=== PATIENT | male | born 1950 | race Hispanic/Latino ===

== ENCOUNTER 2020-06-28 02:04 | Inpatient (IN) | payer OTHER ==
[2020-06-28] VITALS (13 sets, daily range): BP systolic 98–127; BP diastolic 64–84
[2020-06-28] MEDS ORDERED: NITROGLYCERIN 0.4 MG SL TAB SL PRN ×2 (04:00→04:15)
[2020-06-28] MEDS ORDERED: MORPHINE 2 MG SYG IVP PRN (04:00)
[2020-06-28] MEDS ORDERED: ACETAMINOPHEN 325 MG TAB PO PRN ×2 (04:15)
[2020-06-28] MEDS ORDERED: LACTATED RINGERS 1000ML 1,000 ML IV SCH (04:15)
[2020-06-28] MEDS ORDERED: ONDANSETRON 4MG INJ IV PRN (04:15)
[2020-06-28] MEDS ORDERED: DiphenhydrAMINE HCL 50 MG/ML VIAL IV PRN (04:15)
[2020-06-28] MEDS ORDERED: MAG/ALUM/SIMETH 30 ML UDCUP PO PRN (04:15)
[2020-06-28] MEDS ORDERED: LACTULOSE 20 GM/30 ML UDCUP PO PRN (04:15)
[2020-06-28] MEDS ORDERED: GUAIFENESIN-DM 200/20 MG 10 ML PO PRN (04:15)
[2020-06-28] MEDS ORDERED: DIPHENHYDRAMINE HCL 25 MG CAPSULE PO PRN (04:15)
[2020-06-28] MEDS ORDERED: MORPHINE 2 MG SYG IV PRN (04:15)
[2020-06-28] MEDS ORDERED: MORPHINE 4 MG SYG IV PRN (04:15)
[2020-06-28] MEDS ORDERED: PHEN100C23 PO (05:25)
[2020-06-28] MEDS ORDERED: ATOR10 PO (05:25)
[2020-06-28] MEDS ORDERED: ASPI-1197 PO (05:26)
[2020-06-28] MEDS ORDERED: ESCI20TA PO (05:28)
[2020-06-28] MEDS ORDERED: METO-408 PO (05:31)
[2020-06-28] MEDS: FAMOTIDINE 20MG VIAL IV SCH ×2 (07:50→22:21)
[2020-06-28] MEDS: METOPROLOL TARTRATE 25 MG TAB PO SCH ×2 (07:50→22:19)
[2020-06-28] MEDS ORDERED: HEPARIN 10,000 UNIT/10ML (1,000 UNIT/ML) VIAL ONE (07:55)
[2020-06-28] MEDS ORDERED: IOHEXOL-350 75 ML VIAL IV ONE ×3 (07:55→09:07)
[2020-06-28] MEDS ORDERED: IOHEXOL-350 50ML VIAL IV ONE (07:55)
[2020-06-28] MEDS ORDERED: LIDOCAINE HCL 400MG/20ML VIAL ONE (07:55)
[2020-06-28] MEDS ORDERED: MIDAZOLAM HCL 1 MG/ML 2ML VIAL ONE (08:16)
[2020-06-28] MEDS: HEPARIN 5,000 UNIT VIAL SQ SCH ×2 (08:30→22:30)
[2020-06-28] MEDS ORDERED: ATROPINE 1MG SYG IVP ONE (08:46)
[2020-06-28] MEDS ORDERED: DOPAMINE HCL 400 MG/D5%-WATER 250 ML IV ONE (08:54)
[2020-06-28] MEDS ORDERED: ASPIRIN 325 MG TABLET PO SCH (09:00)
[2020-06-28] MEDS ORDERED: ASPIRIN 81MG CHEW TAB ONE (09:20)
[2020-06-28] MEDS ORDERED: PRASUGREL HCL 10 MG TABLET ONE (09:20)
[2020-06-28] MEDS ORDERED: PHENYTOIN SODIUM 100 MG ERCAP PO SCH (13:00)
[2020-06-28] MEDS ORDERED: METO25TA6 PO (13:14)
[2020-06-28] MEDS ORDERED: FLUT1BLS IH (13:16)
[2020-06-28 14:09] LABS: INR 1.05 (0.85-1.15); PROTHROMBIN TIME 11.4 SEC (9.6-11.6)
[2020-06-28 14:10] LABS: PARTIAL THROMBOPLASTIN TIME 33.9 SEC (26.3-35.5)
[2020-06-28] MEDS: PHENYTOIN SODIUM 100 MG ERCAP PO SCH ×2 (19:06→22:19)
[2020-06-29] VITALS (7 sets, daily range): BP systolic 115–159; BP diastolic 65–80
[2020-06-29 06:05] LABS: BASOPHILS % (AUTO) 0.4 % (0.0-5.0); EOSINOPHILS % (AUTO) 9.9 % (0.0-8.0); HEMATOCRIT 38.6 % (42-54); LYMPHOCYTES % (AUTO) 29.6 % (21.0-51.0); MEAN CORPUSCULAR HEMOGLOBIN 28.4 pg (27.0-33.0); MEAN CORPUSCULAR HGB CONC 32.6 g/dL (32.0-36.0); MEAN CORPUSCULAR VOLUME 86.9 fL (79-99); MONOCYTES % (AUTO) 7.2 % (3.0-13.0); NEUTROPHILS % (AUTO) 52.5 % (40.0-77.0); PLATELET COUNT (AUTO) 148 K/uL (130-400); RED BLOOD CELL COUNT(AUTO) 4.44 MIL/uL (4.50-6.20); RED CELL DISTRIBUTION WIDTH 12.4 % (11.0-15.5)
[2020-06-29 06:11] LABS: ALBUMIN 3.7 g/dL (3.5-5.0); BILIRUBIN,TOTAL 0.4 mg/dL (0.2-1.0); CREATININE 0.9 mg/dL (0.5-1.5); POTASSIUM 3.6 mmol/L (3.5-5.1)
[2020-06-29] MEDS: ASPIRIN 81MG CHEW TAB PO SCH ×2 (09:00→10:26)
[2020-06-29] MEDS: FAMOTIDINE 20MG VIAL IV SCH ×2 (10:26→20:49)
[2020-06-29] MEDS: PHENYTOIN SODIUM 100 MG ERCAP PO SCH ×4 (10:27→20:49)
[2020-06-29] MEDS: CITALOPRAM 20 MG TABLET PO SCH (10:27)
[2020-06-29] MEDS: ATORVASTATIN 40 MG TABLET PO SCH (10:27)
[2020-06-29] MEDS: PRASUGREL HCL 10 MG TABLET PO SCH (10:27)
[2020-06-29] MEDS: METOPROLOL TARTRATE 25 MG TAB PO SCH ×2 (10:28→20:49)
[2020-06-29] MEDS: HEPARIN 5,000 UNIT VIAL SQ SCH ×2 (10:36→20:55)
[2020-06-30 03:50] VITALS: BP 112/70
[2020-06-30 04:38] LABS: BASOPHILS % (AUTO) 0.4 % (0.0-5.0); EOSINOPHILS % (AUTO) 11.8 % (0.0-8.0); HEMATOCRIT 37.5 % (42-54); LYMPHOCYTES % (AUTO) 38.2 % (21.0-51.0); MEAN CORPUSCULAR HEMOGLOBIN 28.7 pg (27.0-33.0); MEAN CORPUSCULAR HGB CONC 33.3 g/dL (32.0-36.0); NEUTROPHILS % (AUTO) 41.2 % (40.0-77.0); PLATELET COUNT (AUTO) 141 K/uL (130-400); RED BLOOD CELL COUNT(AUTO) 4.36 MIL/uL (4.50-6.20); RED CELL DISTRIBUTION WIDTH 12.3 % (11.0-15.5); WHITE BLOOD COUNT (AUTO) 4.5 K/uL (4.8-10.8)
[2020-06-30 05:01] LABS: ALBUMIN 3.6 g/dL (3.5-5.0); BILIRUBIN,TOTAL 0.2 mg/dL (0.2-1.0); CREATININE 0.9 mg/dL (0.5-1.5); POTASSIUM 3.8 mmol/L (3.5-5.1); TOTAL PROTEIN, SERUM 6.8 g/dL (6.0-8.3)
[2020-06-30 08:04] VITALS: BP 127/79
[2020-06-30] MEDS: ASPIRIN 81MG CHEW TAB PO SCH ×2 (09:00→14:00)
[2020-06-30] MEDS ORDERED: LOSARTAN 50 MG TABLET PO SCH (10:44)
[2020-06-30 12:00] VITALS: BP 127/69
[2020-06-30] MEDS: PHENYTOIN SODIUM 100 MG ERCAP PO SCH ×3 (13:00→17:36)
[2020-06-30] MEDS: FAMOTIDINE 20MG VIAL IV SCH (14:00)
[2020-06-30] MEDS: PRASUGREL HCL 10 MG TABLET PO SCH (14:05)
[2020-06-30] MEDS: CITALOPRAM 20 MG TABLET PO SCH (14:05)
[2020-06-30] MEDS: METOPROLOL TARTRATE 25 MG TAB PO SCH (14:06)
[2020-06-30] MEDS: ATORVASTATIN 40 MG TABLET PO SCH (14:06)
[2020-06-30] MEDS: HEPARIN 5,000 UNIT VIAL SQ SCH (14:12)
[2020-06-30 16:52] VITALS: BP 128/75
[2020-06-30] MEDS ORDERED: ATOR40TA69 PO (17:02)
[2020-06-30] MEDS ORDERED: METO25 PO (17:02)
[2020-06-30] MEDS ORDERED: PRAS10TA6 PO (17:02)
[2020-06-30] MEDS ORDERED: LOSA50TA2 PO (17:02)
[2020-06-30] MEDS ORDERED: PHENY100 PO (17:02)
[2020-06-30] MEDS ORDERED: CLOP75TA14 PO (17:07)
== END 2020-06-30 19:36 | disposition home or self-care (01) | DRG 246 ==
LOC: 4BH 02:28
PROVIDERS: ADMIT Family Medicine; ATTEND Family Medicine
PROC: 027035Z Dilation of Coronary Artery, One Artery with Two Drug-eluting Intraluminal Devices, Percutaneous Approach (ICD-10-PCS; principal; 2020-06-28)
PROC: 4A023N7 Measurement of Cardiac Sampling and Pressure, Left Heart, Percutaneous Approach (ICD-10-PCS; 2020-06-28)
PROC: B2111ZZ Fluoroscopy of Multiple Coronary Arteries using Low Osmolar Contrast (ICD-10-PCS; 2020-06-28)
PROC: B2151ZZ Fluoroscopy of Left Heart using Low Osmolar Contrast (ICD-10-PCS; 2020-06-28)
DX: I21.4 Non-ST elevation (NSTEMI) myocardial infarction (principal); I50.31 Acute diastolic (congestive) heart failure; E66.9 Obesity, unspecified; G40.909 Epilepsy, unspecified, not intractable, without status epilepticus; E78.5 Hyperlipidemia, unspecified; I25.110 Atherosclerotic heart disease of native coronary artery with unstable angina pectoris; L80 Vitiligo; Z79.02 Long term (current) use of antithrombotics/antiplatelets; Z79.82 Long term (current) use of aspirin; Z79.899 Other long term (current) drug therapy; Z87.891 Personal history of nicotine dependence; I11.0 Hypertensive heart disease with heart failure
CPT/HCPCS: 36415; 80053; 84484; 85025; 85347; 85610; 85730; 93005; 93306; 93458; 99156; 99157; C1769; C1887; C1894; C9600; G0378; J0461; J1265; J1644; J2250; J3490; J7120; Q9967

== ENCOUNTER 2021-06-21 05:30 | Day surgery (SDC) | payer OTHER ==
[2021-06-19 15:46] LABS: BASOPHILS % (AUTO) 0.4 % (0.0-5.0); HEMATOCRIT 39.7 % (42-54); LYMPHOCYTES % (AUTO) 27.6 % (21.0-51.0); MEAN CORPUSCULAR HEMOGLOBIN 27.9 pg (27.0-33.0); MEAN CORPUSCULAR VOLUME 84.5 fL (79-99); MONOCYTES % (AUTO) 5.8 % (3.0-13.0); NEUTROPHILS % (AUTO) 54.9 % (40.0-77.0); PLATELET COUNT (AUTO) 182 K/uL (130-400); RED CELL DISTRIBUTION WIDTH 12.3 % (11.0-15.5); WHITE BLOOD COUNT (AUTO) 7.5 K/uL (4.8-10.8)
[2021-06-19 15:49] LABS: APPEARANCE,URINE Clear (CLEAR); BILIRUBIN,URINE Negative (NEGATIVE); COLOR,URINE Yellow (YELLOW); GLUCOSE, URINE (UA) Negative (NEGATIVE); KETONES,URINE Negative (NEGATIVE); LEUKOCYTE ESTERASE ,URINE Negative (NEGATIVE); NITRATE,URINE Negative (NEGATIVE); OCCULT BLOOD,URINE Negative (NEGATIVE); PROTEIN,URINE Negative (NEGATIVE); UROBILINOGEN,URINE 0.2 mg/dL (0.2-1.0)
[2021-06-19 15:53] LABS: PROTHROMBIN TIME 10.9 SEC (9.6-11.6)
[2021-06-19 15:55] LABS: PARTIAL THROMBOPLASTIN TIME 26.8 SEC (26.3-35.5)
[2021-06-19 16:13] LABS: B-TYPE NATRIURETIC PEPTIDE 20 pg/mL (0-100)
[2021-06-19 16:28] LABS: CREATININE 0.9 mg/dL (0.5-1.5); POTASSIUM 4.2 mmol/L (3.5-5.1)
[2021-06-20 11:10] VITALS: BP 154/76
[2021-06-21] VITALS (13 sets, daily range): BP systolic 113–147; BP diastolic 71–82
[~2021-06-21] VITALS: Ht 175.3 cm; Wt 101.8 kg
[~2021-06-21 05:30] MED LIST: ASPI-449 PO; ATOR20TA65 PO; DULO30CA52 PO; ESCI20TA38 PO; FLUT1BLS3 IH; ISOS30TA92 PO; LOSA25TA41 PO; METO25TA6 PO; PHENY100 PO
[2021-06-21] MEDS ORDERED: NITROGLYCERIN 50MG VIAL ONE (07:07)
[2021-06-21] MEDS ORDERED: IOHEXOL-350 50ML VIAL IV ONE (07:07)
[2021-06-21] MEDS ORDERED: HEPARIN 10,000 UNIT/10ML (1,000 UNIT/ML) VIAL ONE (07:07)
[2021-06-21] MEDS ORDERED: IOHEXOL 350 MG/ML 100ML INFUS..BTL IV ONE (07:07)
[2021-06-21] MEDS ORDERED: LIDOCAINE HCL 400MG/20ML VIAL ONE (07:08)
[2021-06-21] MEDS ORDERED: FENTANYL CITRATE PF 50 MCG/1 ML 2ML VIAL ONE (07:08)
[2021-06-21] MEDS ORDERED: MIDAZOLAM HCL 1 MG/ML 2ML VIAL ONE ×3 (07:08→09:32)
[2021-06-21] MEDS ORDERED: 0.9%NACL 1000ML 1,000 ML IV SCH ×2 (08:00→09:00)
[2021-06-21] MEDS ORDERED: BIVALIRUDIN 250 MG/VIAL IV ONE (08:00)
[2021-06-21] MEDS ORDERED: IOHEXOL-350 75 ML VIAL IV ONE ×2 (08:05→08:24)
[2021-06-21] MEDS ORDERED: CLOPIDOGREL 300MG TAB ONE (08:42)
[2021-06-21] MEDS ORDERED: ASPIRIN 325MG EC TAB PO ONE (08:42)
[2021-06-21] MEDS ORDERED: NITROGLYCERIN 0.4 MG SL TAB SL PRN (09:00)
[2021-06-21] MEDS ORDERED: METOPROLOL TARTRATE 1 MG/ML 5ML VIAL IV PRN (09:00)
[2021-06-21] MEDS ORDERED: HYDRALAZINE 20MG/ML VIAL IV PRN (09:00)
[2021-06-21] MEDS ORDERED: DEXTROSE 50%-WATER 50 ML DISP.SYRIN IV PRN (09:00)
[2021-06-21] MEDS ORDERED: GLUCAGON 1MG KIT 1 MG ML IM PRN (09:00)
[2021-06-21] MEDS ORDERED: CEFAZOLIN SODIUM 1 GM VIAL ONE (09:19)
[2021-06-21] MEDS ORDERED: BUPIVACAINE/PF 0.25% 30ML VIAL IJ ONE (09:19)
[2021-06-21] MEDS ORDERED: LIDOCAINE HCL 1% MDV 50ML VIAL ONE (09:20)
[2021-06-21] MEDS ORDERED: MEPERIDINE-PF 50 MG/ML SYG ONE (09:20)
[2021-06-21] MEDS ORDERED: INSULIN HUMULIN R 100 UNIT/ML 3ML SQ SCH (11:30)
== END 2021-06-21 17:05 | disposition home or self-care (01) ==
LOC: DAH 05:30
PROVIDERS: ATTEND Internal Medicine Cardiovascular Disease
DX: I25.110 Atherosclerotic heart disease of native coronary artery with unstable angina pectoris (principal); E11.51 Type 2 diabetes mellitus with diabetic peripheral angiopathy without gangrene; I11.0 Hypertensive heart disease with heart failure; I50.32 Chronic diastolic (congestive) heart failure; E78.5 Hyperlipidemia, unspecified; I25.2 Old myocardial infarction; F41.9 Anxiety disorder, unspecified; F32.9 Major depressive disorder, single episode, unspecified; E66.9 Obesity, unspecified; Z79.82 Long term (current) use of aspirin; Z79.01 Long term (current) use of anticoagulants; Z79.899 Other long term (current) drug therapy; Z98.890 Other specified postprocedural states; Z87.891 Personal history of nicotine dependence; Z95.5 Presence of coronary angioplasty implant and graft; Z68.32 Body mass index [BMI] 32.0-32.9, adult
CPT/HCPCS: 36415; 71045; 80048; 81003; 83880; 85025; 85610; 85730; 93005; 93458; A4215; A4216; A4221; A4222; A4223 ×3; A4606; A4663; C1725 ×2; C1760; C1769 ×2; C1874; C1887; C1894 ×3; C9600; J0583; J0690; J1644; J2250; J3010; J3490 ×4; J7030 ×2; Q9965; Q9967 ×4; 99156; 99157; J2175

== ENCOUNTER 2021-10-24 05:51 | Day surgery (SDC) | payer OTHER ==
[2021-10-19 09:15] LABS: BASOPHILS % (AUTO) 0.2 % (0.0-5.0); EOSINOPHILS % (AUTO) 8.9 % (0.0-8.0); HEMATOCRIT 39.4 % (42-54); LYMPHOCYTES % (AUTO) 34.4 % (21.0-51.0); MEAN CORPUSCULAR HEMOGLOBIN 28.4 pg (27.0-33.0); MEAN CORPUSCULAR HGB CONC 33.5 g/dL (32.0-36.0); MEAN CORPUSCULAR VOLUME 84.7 fL (79-99); MONOCYTES % (AUTO) 7.7 % (3.0-13.0); NEUTROPHILS % (AUTO) 48.4 % (40.0-77.0); PLATELET COUNT (AUTO) 151 K/uL (130-400); RED BLOOD CELL COUNT(AUTO) 4.65 MIL/uL (4.50-6.20); RED CELL DISTRIBUTION WIDTH 12.8 % (11.0-15.5); WHITE BLOOD COUNT (AUTO) 4.8 K/uL (4.8-10.8)
[2021-10-19 09:24] LABS: CREATININE 0.8 mg/dL (0.5-1.5); POTASSIUM 4.7 mmol/L (3.5-5.1)
[2021-10-19 09:27] LABS: INR 0.94 (0.85-1.15); PROTHROMBIN TIME 10.3 SEC (9.6-11.6)
[2021-10-19 09:28] LABS: PARTIAL THROMBOPLASTIN TIME 26.8 SEC (26.3-35.5)
[2021-10-19 09:41] LABS: APPEARANCE,URINE Clear (CLEAR); BILIRUBIN,URINE Small (NEGATIVE); COLOR,URINE Dark Yellow (YELLOW); GLUCOSE, URINE (UA) Negative (NEGATIVE); KETONES,URINE Trace mg/dL (NEGATIVE); LEUKOCYTE ESTERASE ,URINE Negative (NEGATIVE); NITRATE,URINE Negative (NEGATIVE); OCCULT BLOOD,URINE Negative (NEGATIVE); PH,URINE 5.5 (5.0-8.0); PROTEIN,URINE Trace mg/dL (NEGATIVE); UROBILINOGEN,URINE 0.2 mg/dL (0.2-1.0)
[2021-10-19 09:43] LABS: B-TYPE NATRIURETIC PEPTIDE 17 pg/mL (0-100)
[2021-10-19 09:52] LABS: BACTERIA,URINE Rare /HPF (None Seen); MUCUS,URINE Rare LPF (None Seen); RBC,URINE 0-1 /HPF (0-1); SQUAMOUS EPITHELIAL CELL,UR Rare /HPF (0-2); WBC,URINE 0-1 /HPF (0-1)
[2021-10-24] VITALS (11 sets, daily range): BP systolic 98–127; BP diastolic 60–76
[~2021-10-24] VITALS: Ht 172.7 cm; Wt 96.3 kg
[~2021-10-24 05:51] MED LIST changes: +0.9% NACL 500ML IV.SOLN 500 ML IV SCH; +APRE1TAB2 PO; -ATOR20TA65 PO; +ATOR40TA69 PO; +CLOP75TA32 PO; -ESCI20TA38 PO; -FLUT1BLS3 IH; -ISOS30TA92 PO; +LEVE500T19 PO; -LOSA25TA41 PO; +PHEN100C9 PO; -PHENY100 PO
[2021-10-24] MEDS ORDERED: LIDOCAINE HCL 400MG/20ML VIAL ONE (07:04)
[2021-10-24] MEDS ORDERED: IOHEXOL 350 MG/ML 100ML INFUS..BTL IV ONE (07:04)
[2021-10-24] MEDS ORDERED: HEPARIN 10,000 UNIT/10ML (1,000 UNIT/ML) VIAL ONE (07:04)
[2021-10-24] MEDS ORDERED: NITROGLYCERIN 50MG VIAL ONE (07:04)
[2021-10-24] MEDS ORDERED: BIVALIRUDIN 250 MG/VIAL IV ONE (07:04)
[2021-10-24] MEDS ORDERED: 0.9%NACL 1000ML 1,000 ML IV ONE (07:13)
[2021-10-24] MEDS ORDERED: FENTANYL CITRATE PF 50 MCG/1 ML 2ML VIAL ONE (07:25)
[2021-10-24] MEDS ORDERED: MIDAZOLAM HCL 1 MG/ML 2ML VIAL ONE (07:25)
[2021-10-24] MEDS ORDERED: NITROGLYCERIN 0.4 MG SL TAB SL PRN (08:30)
[2021-10-24] MEDS ORDERED: 0.9%NACL 1000ML 1,000 ML IV SCH (08:30)
[2021-10-24] MEDS ORDERED: GLUCAGON 1MG KIT 1 MG ML IM PRN (08:30)
[2021-10-24] MEDS ORDERED: DEXTROSE 50%-WATER 50 ML DISP.SYRIN IV PRN (08:30)
[2021-10-24] MEDS ORDERED: METOPROLOL TARTRATE 1 MG/ML 5ML VIAL IV PRN (08:30)
[2021-10-24] MEDS ORDERED: INSULIN HUMULIN R 100 UNIT/ML 3ML SQ SCH (11:30)
== END 2021-10-24 14:45 | disposition home or self-care (01) ==
LOC: DAH 05:51
PROVIDERS: ATTEND Internal Medicine Cardiovascular Disease
DX: I25.119 Atherosclerotic heart disease of native coronary artery with unspecified angina pectoris (principal); I11.0 Hypertensive heart disease with heart failure; I50.32 Chronic diastolic (congestive) heart failure; E66.9 Obesity, unspecified; E78.5 Hyperlipidemia, unspecified; F41.9 Anxiety disorder, unspecified; F32.A Depression, unspecified; G40.909 Epilepsy, unspecified, not intractable, without status epilepticus; Z68.31 Body mass index [BMI] 31.0-31.9, adult; Z87.891 Personal history of nicotine dependence; Z95.5 Presence of coronary angioplasty implant and graft; Z98.890 Other specified postprocedural states; Z79.82 Long term (current) use of aspirin; Z79.01 Long term (current) use of anticoagulants; Z79.899 Other long term (current) drug therapy
CPT/HCPCS: 36415; 80048; 81001; 83880; 85025; 85610; 85730; 93005; 93454; A4215; A4216; A4221; A4222; A4223 ×3; A4606; A4663; C1760; C1769; C1874; C1887; C1894 ×2; C9600; J0583; J1644; J2250; J3010; J3490 ×2; J7030; Q9965; Q9967; 96360; 96361; 99156; 99157